=== PATIENT | male | born 2000 | race Caucasian/White ===

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

== ENCOUNTER 2020-03-15 17:53 | Emergency (ER) | payer BC ==
[~2020-03-15] VITALS: Ht 182.9 cm; Wt 111.4 kg
[~2020-03-15 17:53] MED LIST: PREDNISONE20 MG PO
[2020-03-15 17:57] VITALS: BP 130/69; TEMP 98.2
[2020-03-15] MEDS ORDERED: CEPHALEXIN500 M1 PO (18:29)
[2020-03-15 18:40] VITALS: PULSE 70
== END 2020-03-15 18:40 | disposition home or self-care (01) ==
LOC: COL.ER 17:53
DX: S60.552A Superficial foreign body of left hand, initial encounter (principal); W45.8XXA Other foreign body or object entering through skin, initial encounter; Y92.830 Public park as the place of occurrence of the external cause